=== PATIENT | male | born 1950 | race Caucasian/White ===

== ENCOUNTER 2019-12-18 15:41 | Emergency (ER) | payer MEDICARE, SELFPAY ==
[2019-12-18 15:57] VITALS: BP 147/84; PULSE 71; RESP 18; TEMP 36.6; O2SAT 97
--- NOTE | 2019-12-18 16:00 | ED.SKABFB ---
HPI - Skin/Abscess/Foreign Bdy General Chief complaint: Skin/Abscess/Foreign Body Stated complaint: splinter in hand Time Seen by Provider: 12/18/19 16:00 Source: patient and family Mode of arrival: ambulatory Limitations: no limitations History of Present Illness HPI narrative: 69-year-old man who has previously well comes in today complaining of a splinter in his right palm. Patient states he was moving a large board when it slipped and gave him a splinter. It happened approximately 2 or 3 hours ago. Does not recall his last tetanus shot. He denies any numbness or tingling or decreased range of motion. complaint: foreign body Onset (ago): hour(s) (3) Tetanus up to date: unsure Location: R hand Severity: mild Quality: sharp Pain Consistency: intermittent Relieving factors: immobilization Exacerbating factors: palpation and movement Treatments prior to arrival: other ( Attempted removing @ home with a pocket knife.) Related Data Home Medications Medication Instructions Recorded Confirmed No Home Medications 12/18/19 12/18/19 Allergies Allergy/AdvReac Type Severity Reaction Status Date / Time Penicillins Allergy Unknown Verified 12/18/19 16:04 Review of Systems Constitutional: Constitutional: Denies chills and Denies fever(s) Cardiovascular: Cardiovascular: Denies chest pain and Denies radiating jaw, neck or arm pain Respiratory: Respiratory: Denies cough and Denies dyspnea Gastrointestinal: Gastrointestinal: Denies nausea and Denies vomiting Musculoskeletal: Musculoskeletal: Denies arthralgias and Denies joint swelling Integumentary/Breasts: Skin/Breast: Denies pruritus, Denies erythema and Denies rash Neurologic: Denies focal weakness and Denies numbness Hematologic/Lymphatic: Hematologic/Lymphatic: Denies easy bleeding and Denies easy bruising Allergic/Immunologic: Allergic/Immunologic: Denies lip swelling and Denies throat swelling PMFSH Past Medical History Medical History Essential tremor Surgical History Surgical History History of knee surgery History of shoulder surgery Social History Social History Smoking status: Never smoker Alcohol intake: never Substance use: never Living arrangements: with family Exam Const: General: healthy appearing, no acute distress and alert Orientation/consciousness: patient oriented x3 HENMT: Face and sinus: normal facial exam Skin: General skin exam: normal color, no jaundice and no pallor ( puncture wound at the right thenar eminence with palpable foreign body) Rashes: no rashes Neuro: General: patient oriented x3, moves all extremities, no focal motor deficits and CN's II-XI intact bilaterally Speech: normal speech Gait exam (Neuro): Normal gait present Extrem: General: normal to inspection and no clubbing, cyanosis or edema Psych: Appearance: grossly normal and well kempt Mental Status: mental status grossly normal Affect: normal affect Attitude: cooperative Thought content: Yes Normal thought content present Procedures Foreign Body Removal Foreign Body #1: Foreign Body Removal Date: 12/18/19 Foreign Body Removal Time: 16:20 Time Out Performed: yes Site: right and hand Description of foreign body: other ( Wood) Sedation/Analgesia: other ( 1% lidocaine with epinephrine 1 cc locally) Technique: removal with forceps and incision made to facilitate removal ( 3 mm with 11 blade scalpel) Confirmed by:: direct visualization Complications: none Post-procedure exam: awake, alert Neurovascular: normal distal pulse, normal capillary fill, distal light touch sensation intact, distal motor function normal and no signs of compartment syndrome Foreign Body Removal Narrative: 2.5 cm tapered wood splint
[2019-12-18] MEDS: TETANUS,DIPHTHERIA,AC PERTUSSIS ADULT 0.5 ML (ADACEL) IM (16:09)
== END 2019-12-18 16:36 | disposition home or self-care (01) ==
PROVIDERS: Emergency Provider Emergency Medicine; PCP Internal Medicine
DX: S60.551A Superficial foreign body of right hand, initial encounter (principal)
CPT/HCPCS: 10120; 90471; 90715; 99282

== ENCOUNTER 2022-09-17 13:07 | Outpatient (CLI) | payer MEDICARE, SELFPAY ==
--- NOTE | 2022-09-17 01:00 | ECHO_ITS ---
Patient Info Name: Vickey James Age: 72 years : 1950 Gender: Male Ht: 69 in Wt: 220 lbs BSA: 2.24 m2 HR: 59 bpm BP: 161 / 72 mmHg Heart Rhythm: Sinus Rhythm Technical Quality: Fair Exam Date: 09/17/2022 1:14 PM Exam Location: [facility] Patient Status: Outpatient Admit Date: 09/17/2022 Staff Ordering Physician: Bob Boo MD [employer] Security Officer: Sara Russell RDCS Attending Provider: Bob Boo MD Exam Type: CA echo doppler color flow Study Info Indications - Systolic murmur - SUMNER R94.31 - Abnormal electrocardiogram ECG EKG Complete two-dimensional, color flow and Doppler transthoracic echocardiogram is performed. Summary 1. Complete two-dimensional, color flow and Doppler transthoracic echocardiogram is performed. 2. Left ventricular chamber dimension is normal. 3. Left ventricular systolic function is normal, estimated at 60-65%. 4. There is mild concentric increased left ventricular wall thickness. 5. The left ventricular diastolic function is normal. 6. E/e' 9 is minimally elevated. 7. There is mild aortic valve sclerosis. 8. There is trace mitral valve regurgitation. 9. No pulmonary hypertension, estimated pulmonary arterial systolic pressure is 34 mmHg. 10. There is trace pulmonic regurgitation. Left Ventricle E/e' 9 is minimally elevated. Left ventricular chamber dimension is normal. Left ventricular systolic function is normal, estimated at 60-65%. There is mild concentric increased left ventricular wall thickness. The left ventricular diastolic function is normal. Right Ventricle Right ventricular systolic function is normal and with normal TAPSE 2.0 cm. Right ventricular chamber dimension is normal. Left Atria Left atrial chamber dimension is normal. Right Atria Right atrial chamber dimension is normal. Aortic Valve The aortic valve is trileaflet. There is mild aortic valve sclerosis. There is no aortic valve stenosis. There is no aortic valve regurgitation. Pulmonic Valve There is trace pulmonic regurgitation. Mitral Valve There is no mitral valve stenosis. There is trace mitral valve regurgitation. Tricuspid Valve There is no tricuspid valve regurgitation. No pulmonary hypertension, estimated pulmonary arterial systolic pressure is 34 mmHg. Pericardium/Pleural There is no pericardial effusion. Inferior Vena Cava Normal inferior vena cava with >50% collapse upon inspiration consistent with normal right atrial pressure, 5 mmHg. Aorta The aortic root size at the sinus of Valsalva is normal. Left Ventricular Outflow Tract Name Value Normal LVOT 2D LVOT Diameter 2.0 cm LVOT Doppler LVOT Peak Velocity 109 cm/s LVOT Peak Gradient 5 mmHg LVOT Mean Gradient 2 mmHg LVOT VTI 24 cm LVOT VTI/AV VTI Ratio 0.5 LVOT Stroke Volume 74 ml Pulmonic Valve Name Value Normal RVOT Doppler
== END 2022-09-17 13:08 | disposition home or self-care (01) ==
LOC: CHSIMG 13:09
PROVIDERS: PCP Internal Medicine; Visit Provider Internal Medicine
DX: R94.31 Abnormal electrocardiogram [ECG] [EKG] (principal); R06.09 Other forms of dyspnea; R01.1 Cardiac murmur, unspecified; I70.0 Atherosclerosis of aorta
CPT/HCPCS: 93306

== ENCOUNTER 2022-10-17 00:42 | Day surgery (SDC) | payer MEDICARE, SELFPAY ==
[2022-10-11 08:09] VITALS: BMI 33.2
--- NOTE | 2022-10-16 11:36 | PM.HPGS ---
History of Present Illness History of Present Illness Consent: Risks, benefits, and alternatives have been discussed and questions answered. Patient agrees to proceed with procedure. Chief complaint: hx of colon polyps Narrative: Vickey James is a 72 year old male referred for colon cancer screening. His last colonoscopy was about 19 years ago. A small polyp was removed at that time. Review of Systems Review of Systems: All systems reviewed & are unremarkable except as noted in HPI and below PMFSH Past Medical History Medical History Asthma Essential tremor HTN (hypertension) Hyperlipidemia Surgical History Surgical History History of knee surgery History of shoulder surgery Social History Social History Smoking status: Never smoker Alcohol intake: current Drinks per week: 2 Substance use: never Substance use type: does not use Living arrangements: with family Meds Home Medications and Allergies Home Medications Medication Instructions Recorded Confirmed Type losartan 50 mg tablet 50 mg PO DAILY 10/11/22 10/11/22 History simvastatin 10 mg tablet 10 mg PO DAILY 10/11/22 10/11/22 History Allergies Allergy/AdvReac Type Severity Reaction Status Date / Time Penicillins Allergy Unknown Verified 10/17/22 08:11 Exam Resp: Auscultation: clear to auscultation bilaterally Cardio: Rate: regular rate Rhythm: regular rhythm GI: GI Palp: Yes Soft to palpation and No Tenderness to palpation present (GI) Assessment and Plan Assessment and plan (1) Colon cancer screening: Code(s): Z12.11 - Encounter for screening for malignant neoplasm of colon Status: Acute Assessment and Plan: Colonoscopy with possible biopsy or polypectomy or cautery or injection of substances.
[2022-10-17 08:12] VITALS: BP 153/71; PULSE 55; RESP 18; TEMP 36.1; O2SAT 97
[2022-10-17] MEDS: LACTATED RINGERS 1,000 ML 150 ML IV CONT (08:30)
--- NOTE | 2022-10-17 08:34 | WPDANESEPPF ---
Anes - Initial Pre Proc Eval Procedure: Operation Date: 10/17/22 09:30 Proposed Procedures p Colonoscopy - Sal Glover MD Date/Time: 10/17/22 08:34 Surgeon: Sal Glover MD Pre Op Diagnosis: hx of colon polyps Patient Data Age: 72 Gender: M Height: 1.75 m Weight: 99 kg Last Vital Signs Temp 36.1 C L 10/17/22 08:12 Pulse 55 L 10/17/22 08:12 Resp 18 10/17/22 08:12 BP 153/71 H 10/17/22 08:12 Pulse Ox 97 10/17/22 08:12 O2 Del Method Room Air 10/17/22 08:12 Allergies Allergy/AdvReac Type Severity Reaction Status Date / Time Penicillins Allergy Unknown Verified 10/17/22 08:11 Home Medications Medication Instructions Recorded Confirmed Type losartan 50 mg tablet 50 mg PO DAILY 10/11/22 10/11/22 History simvastatin 10 mg tablet 10 mg PO DAILY 10/11/22 10/11/22 History Patient hx anesthesia problems: none Family hx anesthesia problems: none Results Review: All pre-operative results and documents have been reviewed as part of the pre-operative evaluation. [facility] Past Medical History Medical History (Updated 10/17/22 @ 08:35 by Esdras Hoffman MD) Asthma Essential tremor HTN (hypertension) Hyperlipidemia Surgical History Surgical History History of knee surgery History of shoulder surgery Social History Social History Smoking status: Never smoker Alcohol intake: current Drinks per week: 2 Substance use: never Substance use type: does not use Living arrangements: with family Anes - Eval Final PreProcedure Day of Procedure 10/17/22 08:34 Patient weight: obese Heart: regular rate and rhythm Lungs: clear to auscultation and normal air movement Airway: Mallampati scale class II Neurological: alert and oriented Last oral intake: >/= 8 hours ASA classification: III Emergent: no Anesthetic plan: proceed Anesthesia type and monitoring: general GIVS Results Review: All pre-operative results and documents have been reviewed as part of the pre-operative evaluation. Informed Consent: The patient's anesthetic plan and its attendant risks and benefits were discussed with the patient/family/POA. Questions were solicited and answers provided to the satisfaction of the patient/family/POA.
[2022-10-17 09:34] VITALS: BP 101/44; PULSE 53; RESP 20; O2SAT 97
[2022-10-17 09:44] VITALS: BP 114/57; PULSE 48; RESP 20; O2SAT 96
[2022-10-17 09:54] VITALS: BP 115/58; PULSE 48; RESP 18; O2SAT 96
== END 2022-10-17 10:06 | disposition home or self-care (01) ==
PROVIDERS: PCP Internal Medicine; Visit Provider Internal Medicine Gastroenterology
PROC: 0DJD8ZZ Inspection of Lower Intestinal Tract, Via Natural or Artificial Opening Endoscopic (ICD-10-PCS; CPT 45378; principal; 2022-10-17 09:30)
DX: Z12.11 Encounter for screening for malignant neoplasm of colon (principal); K57.30 Diverticulosis of large intestine without perforation or abscess without bleeding; K64.8 Other hemorrhoids; Z86.010 Personal history of colon polyps; I10 Essential (primary) hypertension; E78.5 Hyperlipidemia, unspecified; E66.9 Obesity, unspecified; Z68.32 Body mass index [BMI] 32.0-32.9, adult
CPT/HCPCS: G0105; J2001; J2704; J7120

== ENCOUNTER 2024-07-07 08:53 | Outpatient (CLI) | payer MEDICARE, SELFPAY ==
--- NOTE | ~2024-07-07 | XR_ITS ---
EXAMINATION: XR foot LT min 3V DATE: 07/07/2024 09:06 INDICATION: Left great toe injury and infection. TECHNIQUE: 4 views of left foot were obtained. COMPARISON: None. FINDINGS: Bone alignment is normal. No fracture. There is severe osteoarthritis of first metatarsopha langeal joint and mild osteoarthritis of some of the interphalangeal joints. There are enthesophytes at the posterior and plantar aspects of calcaneal tuberosity. IMPRESSION: 1. Polyarticular osteoarthritis. Reviewed, dictated and finalized at location A. ATOR DISPATCHER
--- OUTSIDE RECORDS SUMMARY | 2024-07-07 09:27 | XMS_ITS | Clinical Summary ---
Author Organization [facility] Address [facility] [address] [place] [address] Care Team Providers Care Siphon Operator Name Role Phone Belinda Sprague MD Primary Care Provider [phone] Allergies Active Allergy Reactions Criticality Noted Date Comments Penicillins Unknown 08/08/2023 Medications losartan (COZAAR) 100 MG tablet Take 1 tablet (100 mg total) by mouth daily. Active Active Problems No known active problems Social History Tobacco Use Types Packs/Day Years Used Date Smoking Tobacco: Never Smokeless Tobacco: Never Alcohol Use Standard Drinks/Week Comments Yes 0 (1 standard drink = 0.6 oz pur e alcohol) 10 per week Sex and Gender Information Value Date Recorded Sex Assigned at Not on file Legal Sex Male 9:32 AM CDT Gender Identity Not on file Sexual Orientation Not on file Last Filed Vital Signs Vital Sign Reading Time Taken Comments Blood Pressure 175/93 09/11/2023 1:40 PM CDT Pulse 56 09/11/2023 12:14 PM CDT Temperature 36.6 C (97.9 F) 09/11/2023 12:14 PM CDT Respiratory Rate 18 09/11/2023 12:14 PM CDT Oxygen Saturation 97% 09/11/2023 1:40 PM CDT Inhaled Oxygen Concentration - - Weight 102.1 kg (225 lb) 09/11/2023 12:14 PM CDT Height 175.3 cm (5' 9 ) 09/11/2023 12:14 PM CDT Body Mass Index 33.23 09/11/2023 12:14 PM CDT Plan of Treatment Health Maintenance Due Date Last Done Comments Colorectal Cancer Screening Colonoscopy (10 Years) 1950 Hepatitis C 01/12/1970 Zoster Vaccines (1 of 2) 01/12/2002 Annual Medicare Wellness Visit 01/12/2017 Pneumococcal Vaccine: 65+ Years (1 of 1 - PCV) 01/12/2017 COVID-19 Vaccine (4 - 2023-2 5 season) 2024 04/20/2022, 03/07/2021, 07/28/2020 Influenza Adult (#1) 2024 RSV Immunization or 60+ Years (1 - 1-dose 75+ series) 01/12/2027 DTaP, Tdap and Td Vaccines ( 3 - Td or Tdap) 12/17/2029 12/18/2019, 06/08/2013 Meningococcal B Vaccine Aged Out No l onger eligible based on patient's age to complete this topic Meningococcal Vaccine Aged Out No carla katalina eligible based on patient's age to complete this topic RSV Immunizations Under 20 Months Aged Out No longer eligible b ased on patient's age to complete this topic Medical Devices Implanted Type Area Surgical Elastic Knitter Device Identifier Shelf Expiration Date Model / Serial / Lot Iol Tecnis Simplicity Dcb00 - [id number] Implanted:Qty: 1 on 08/14/2023 by Belinda Sprague MD at [facility] [employer] 06/04/2026 DCB00 / / [id number] Iol [employer] Simplicity Dcb00 - [id number] Implanted:Qty: 1 on 09/11/2023 by Belinda Sprague MD at [facility] [employer] DCBOO 01/17/2026 DCB00 / / NONE Insurance [employer] Care Teams Siphon Operator Relationship Specialty Start Date End Date Belinda Sprague MD [address] [place] [address] [address] [place], [place] [id number] PCP - General OPHTHALMOLOGY 08/09/23
== END 2024-07-07 08:54 | disposition home or self-care (01) ==
LOC: CHSIMG 08:54
PROVIDERS: PCP Internal Medicine; Visit Provider Nurse Practitioner Family
DX: S99.922A Unspecified injury of left foot, initial encounter (principal); M19.072 Primary osteoarthritis, left ankle and foot
CPT/HCPCS: 73630